=== PATIENT | female | born 1990 | race Caucasian/White ===

== ENCOUNTER → 2017-01-06 | Outpatient (CLI) | payer BC ==
--- NOTE | 2017-01-07 09:09 | RAD ---
Obstetrical ultrasound, 01/06/2017: History: Check size and dates Transabdominal scans were obtained. There is a single intrauterine fetus in a variable orientation. The biparietal diameter measures 4.0 cm compatible with a gestational age of 18-19 weeks. This corresponds well to the other measurements and yields a sonographic EDC of 06/06/2017. Normal activity and heart motion were seen. No specific abnormality is detected. The placenta lies posteriorly. The cervix was not clearly defined, however, the placenta currently extends down near the region of the internal cervical os. The cervix measures over 3 cm in length. A normal amount of amniotic fluid is present. IMPRESSION: 1. Single viable intrauterine fetus of 18-19 weeks gestational age. 2. Low-lying placenta. Sonographic follow-up is suggested.
== END | disposition home or self-care (01) ==
LOC: US 15:03
PROVIDERS: ATTEND Obstetrics & Gynecology
DX: O09.90 Supervision of high risk pregnancy, unspecified, unspecified trimester (principal); O26.849 Uterine size-date discrepancy, unspecified trimester
CPT/HCPCS: 76805

== ENCOUNTER 2017-04-23 16:38 | Inpatient (IN) | payer BC ==
[~2017-04-23] VITALS: Ht 160 cm; Wt 73.5 kg
[2017-04-23] MEDS ORDERED: MAGNESIUM SULFATE 2GM 50 ML IV ONE (18:30)
[2017-04-23] MEDS ORDERED: MAGNESIUM SULFATE 4GM 100 ML IV ONE (18:30)
[2017-04-23] MEDS: BETAMET ACET&NA PHOS 30 MG/5 ML VIAL. IM SCH (18:30)
[2017-04-23 18:58] VITALS: BP 128/80
[2017-04-23] MEDS: IV RINGERS,LACTATED 1000ML 1,000 ML IV SCH (19:00)
[2017-04-23 19:37] LABS: BASO # 0.1 x10^3/uL (0.0-0.2); BASO % 0 % (0-3); EOS % 0 % (0-3); HEMATOCRIT 38.8 % (36.0-47.0); LYMPH # 1.8 x10^3/uL (1.0-4.8); LYMPH % 14 % (24-48); MEAN CORPUSCULAR HEMOGLOBIN 29 pg (25-35); MEAN CORPUSCULAR HGB CONC 34 g/dL (31-37); MEAN CORPUSCULAR VOLUME 88 fL (79-100); MONO % 9 % (0-9); NEUT % 77 % (31-73); PLATELET COUNT 200 x10^3/uL (140-400); RED BLOOD COUNT 4.43 x10^6/uL (3.50-5.40); RED CELL DISTRIBUTION WIDTH 13.3 % (11.5-14.5); WHITE BLOOD COUNT 13.1 x10^3/uL (4.0-11.0)
[2017-04-23] MEDS: MAGNESIUM SULFATE 20GM 500 ML IV SCH (19:45)
[2017-04-24] MEDS ORDERED: fentaNYL PF VIAL 100 MCG/2 ML VIAL IV PRN (02:30)
[2017-04-24] MEDS: MAGNESIUM SULFATE 20GM 500 ML IV SCH ×2 (06:02→16:06)
--- NOTE | 2017-04-24 08:29 | PDOC1 ---
OB - History Hx of Present Care: Good Care Ultrasounds: Normal mid trimester US Obstetrical Complications: Other (H/o PTL/PTD) Medical Complications: None Past Family/Social History * Past Medical, Surgical, Family and Obstetric Histories reviewed from chart. Rubella: Immune RPR/VDRL: Negative GBS Status: Unknown HBsAG: Negative OB - Chief Complaint & HPI Date of Admission: Date of Admission: Apr 23, 2017 at 16:38 Chief Complaint/History : 2 Para: 1 EGA: 33 Reason for admission: labor Admission Nurse Assessment Rev: Yes Problems: OB - Admission Exam Physical Exam Vitals: VS - Last 72 Hours, by Label Date Time Temp Pulse Resp B/P (MAP) Pulse Ox O2 Delivery O2 Flow Rate FiO2 04/23/17 18:58 99.7 97 20 128/80 (96) 99.7 HEENT: Normal Heart: Regular Rate Lungs: Clear Abdomen: Gravid, Non tender, Soft Extremities: Edema Reflexes: Normal Cervical Dilatation: 2cm Effacement: 75% Station: -3 Membranes: Intact Heart Rate: Normal Accelerations: Accelerations Present Decelerations: No decelerations Contractions on Admission: < 5 Minutes Apart Intensity: Moderate Text A: 33 wks + 6 days IUP H/o PTL/PTD P: Admit for PTL. Start magnesium sulfate and corticosteroids. LETICIA SMAPSON Jr, MD Apr 24, 2017 08:29
[2017-04-24] MEDS: IV RINGERS,LACTATED 1000ML 1,000 ML IV SCH (10:41)
[2017-04-24] MEDS: BETAMET ACET&NA PHOS 30 MG/5 ML VIAL. IM SCH (21:30)
[2017-04-24] MEDS ORDERED: NIFEdipine 10 MG CAPSULE PO SCH (23:00)
[2017-04-25 06:20] VITALS: BP 103/59
--- NOTE | 2017-04-25 14:01 | PDOC ---
OB Progress Note Date of Service 04/25/17 Time of Evaluation 1400 Notes Pt. feeling well. No painful contractions since completing magnesium sulfate and corticosteroids. Lab Laboratory Tests Test 04/23/17 19:22 04/24/17 09:00 White Blood Count 13.1 x10^3/uL (4.0-11.0) Red Blood Count 4.43 x10^6/uL (3.50-5.40) Hemoglobin 13.0 g/dL (12.0-15.5) Hematocrit 38.8 % (36.0-47.0) Mean Corpuscular Volume 88 fL (79-100) Mean Corpuscular Hemoglobin 29 pg (25-35) Mean Corpuscular Hemoglobin Concent 34 g/dL (31-37) Red Cell Distribution Width 13.3 % (11.5-14.5) Platelet Count 200 x10^3/uL (140-400) Neutrophils (%) (Auto) 77 % (31-73) Lymphocytes (%) (Auto) 14 % (24-48) Monocytes (%) (Auto) 9 % (0-9) Eosinophils (%) (Auto) 0 % (0-3) Basophils (%) (Auto) 0 % (0-3) Neutrophils # (Auto) 10.1 x10^3uL (1.8-7.7) Lymphocytes # (Auto) 1.8 x10^3/uL (1.0-4.8) Monocytes # (Auto) 1.1 x10^3/uL (0.0-1.1) Eosinophils # (Auto) 0.0 x10^3/uL (0.0-0.7) Basophils # (Auto) 0.1 x10^3/uL (0.0-0.2) Magnesium Level 5.9 mg/dL (1.8-2.4) Medications Current Medications Ringer's Solution 1,000 ml @ 125 mls/hr Q8H IV Last administered on 04/24/17 10:41; Start 04/23/17 at 18:29 Betamethasone Acet/Betameth SodPhos (Celestone Soluspan) 12 mg Q24H IM Last administered on 04/24/17 21:30; Start 04/23/17 at 18:30; Stop 04/24/17 at 18:31; Status DC Magnesium Sulfate/ Dextrose 50 ml @ 25 mls/hr 1X ONCE IV Last administered on 04/23/17 19:46; Start 04/23/17 at 18:30; Stop 04/23/17 at 20:29; Status DC Magnesium Sulfate/ Dextrose 100 ml @ 25 mls/hr 1X ONCE IV Last administered on 04/23/17 19:45; Start 04/23/17 at 18:30; Stop 04/23/17 at 22:29; Status DC Magnesium Sulfate 500 ml @ 50 mls/hr Q10H IV Last administered on 04/24/17 16: 06; Start 04/23/17 at 18:30; Stop 04/24/17 at 22:37; Status DC Fentanyl Citrate (Fentanyl 2ml Vial) 100 mcg PRN Q1HR PRN IV SEVERE PAIN; Start 04/24/17 at 02:30 Nifedipine (Procardia) 10 mg DAILY PO Last administered on 04/25/17 06:20; Start 04/24/17 at 23:00 Exam Abd: soft, non tender Pelvic: cvx 2/70/-3. NST Category 1. No further contractions. Assessment 34 wks IUP PTL: stable Plan of Care: See new orders (D/c home.) LETICIA SAMPSON Jr, MD Apr 25, 2017 14:01
--- NOTE | 2017-04-25 14:01 | DISCH ---
DISCHARGE INSTRUCTIONS Condition on Discharge Condition on Discharge: Stable Activity After Discharge Activity Instructions for Disc: Activity as tolerated Lifting Instructions after Dis: No heavy lifting Driving Instructions after Dis: Do not drive today Diet after Discharge Diet after Discharge: Regular Contacting the DRJacob after DC Call your doctor for: Concerns you may have Follow-Up Follow up with: Dr. Kerr in 1 week. LETICIA KERR Jr, MD Apr 25, 2017 14:01
[2017-04-26 22:07] LABS: RPR REFLEX Non Reactive (Non Reactive)
--- NOTE | 2017-04-28 17:44 | PDOC3 ---
OB DISCHARGE SUMMARY DATE OF ADMISSION: 04/23/17 DATE OF DISCHARGE: 04/25/17 REASON FOR ADMISSION: labor PROCEDURES: NST, Mgmt of OB Complications (magnesium sulfate and corticosteroids) INTRAPARTUM PROCEDURES: Others (medical treatment of labor) PROCEDURES: None OPERATIONS: None DISCHARGE DIAGNOSIS: Others (PTL undelivered) DISCHARGE INFORMATION: Activity (modified bed rest), Diet (regular), Instructions (modified bed rest), Discharge to (home) CONDITION AT DISCHARGE stable LETICIA SAMPSON Jr, MD Apr 28, 2017 17:44
== END 2017-04-25 14:30 | disposition home or self-care (01) | DRG 778 ==
LOC: 3 SO LND 16:38 → OBSVTOIN 16:38
PROVIDERS: ADMIT Obstetrics & Gynecology; ATTEND Obstetrics & Gynecology
DX: O60.03 Preterm labor without delivery, third trimester (principal); Z3A.33 33 weeks gestation of pregnancy
CPT/HCPCS: 36415; 83735; 85027; 86593; 86850; 86900; 86901; 87653; G0378; J0702; J3475; J7060; J7120

== ENCOUNTER 2017-05-22 18:16 | Inpatient (IN) | payer BC ==
[~2017-05-22] VITALS: Ht 149.9 cm; Wt 76.7 kg
[2017-05-22] MEDS ORDERED: PNV1TABL25 PO (18:41)
[2017-05-22] MEDS ORDERED: RANI150T6 PO (18:41)
[2017-05-22] MEDS ORDERED: CALC200T3 PO (18:42)
[2017-05-22] MEDS ORDERED: LIDOCAINE 1% PF 30 ML VIAL. INJ PRN (18:45)
[2017-05-22] MEDS ORDERED: 0.9 % SODIUM CHLORIDE 10 ML DISP.SYRIN. IV PRN (18:45)
[2017-05-22] MEDS ORDERED: fentaNYL PF VIAL 100 MCG/2 ML VIAL IV PRN ×2 (18:45)
[2017-05-22] MEDS ORDERED: TERBUTALINE 1 MG/ML VIAL. SQ PRN (18:45)
[2017-05-22] MEDS ORDERED: OXYTOCIN 30 UNIT/500 ML PREMIX 500 ML IV PRN (18:45)
[2017-05-22] MEDS ORDERED: IBUPROFEN 600 MG TABLET. PO PRN (18:45)
[2017-05-22] MEDS ORDERED: BUTORPHANOL 2 MG/ML VIAL. IV PRN ×2 (18:45)
[2017-05-22 19:09] LABS: HEMOGLOBIN 13.3 g/dL (12.0-15.5); RED BLOOD COUNT 4.49 x10^6/uL (3.50-5.40); RED CELL DISTRIBUTION WIDTH 13.3 % (11.5-14.5); WHITE BLOOD COUNT 13.2 x10^3/uL (4.0-11.0)
[2017-05-22 20:01] VITALS: BP 123/82
[2017-05-22] MEDS ORDERED: diphenhydrAMINE HCL 25 MG CAPSULE PO PRN (20:30)
[2017-05-23] MEDS ORDERED: NALOXONE 0.4 MG/ML VIAL. IV PRN (01:45)
[2017-05-23] MEDS ORDERED: ONDANSETRON PF 4 MG/2 ML VIAL. IV PRN ×2 (01:45)
[2017-05-23] MEDS ORDERED: fentaNYL PF VIAL 100 MCG/2 ML VIAL EPI ONE (01:45)
[2017-05-23] MEDS ORDERED: ePHEDrine PF IN SALINE 50 MG/5 ML DISP.SYRIN IV PRN (01:45)
[2017-05-23] MEDS ORDERED: ROPIVacaine 0.2% PF 10 ML VIAL. EPI ONE (02:00)
[2017-05-23] MEDS: L&D EPIDURAL CASSETTE 100 ML EP PRN ×2 (02:03→09:27)
[2017-05-23] MEDS: IV RINGERS,LACTATED 1000ML 1,000 ML IV SCH ×2 (02:05→09:26)
--- NOTE | 2017-05-23 08:56 | PDOC1 ---
OB - History Hx of Present Care: Good Care Ultrasounds: Normal mid trimester US Obstetrical Complications: None Medical Complications: None Past Family/Social History * Past Medical, Surgical, Family and Obstetric Histories reviewed from chart. Rubella: Immune RPR/VDRL: Negative GBS Status: Negative HBsAG: Negative OB - Chief Complaint & HPI Date of Admission: Date of Admission: May 22, 2017 at 18:16 Chief Complaint/History : 2 Para: 1 EGA: 38 Reason for admission: active labor Admission Nurse Assessment Rev: Yes Problems: OB - Admission Exam Physical Exam Vitals: VS - Last 72 Hours, by Label Date Time Temp Pulse Resp B/P (MAP) Pulse Ox O2 Delivery O2 Flow Rate FiO2 05/23/17 02:03 18 05/23/17 02:03 18 05/23/17 00:08 18 05/22/17 20:01 99.6 82 18 123/82 (96) Room Air 99.6 Lungs: Clear Abdomen: Gravid, Non tender, Soft Extremities: Edema Reflexes: Normal Cervical Dilatation: 4cm Effacement: 75% Station: -2 Membranes: Intact Heart Rate: Normal Accelerations: Accelerations Present Decelerations: No decelerations Contractions on Admission: 6-10 Minutes Apart Intensity: Moderate Text A: 38 wks IUP Active labor H/o PTL this ; s/p corticosteroids P: Admit for labor management. LETICIA SAMPSON Jr, MD May 23, 2017 08:56
[2017-05-23] MEDS ORDERED: CITRIC ACID/SODIUM CITRATE 30 ML SOLUTION. PO ONE (09:15)
--- NOTE | 2017-05-23 10:54 | PDOC ---
VAGINAL DELIVERY DATE DATE: 05/23/17 TIME: 10:51 : 2 Para: 2 EGA: 38 VAGINAL DELIVERY: VTX VACCUM ASSISTED: No PLACENTA: Spontaneous 8/9 SEX: Male WEIGHT Weight [ 2940 gm] Nuchal Cord: No Amniotic Fluid: Clear PAIN: Epidural EPISIOTOMY: No EXTENSION: No EBL 300 ml COMPLICATIONS none CONDITION pt. stable Signs of Intrauterine Infectio: None Shoulder Dystocia: No Problems: LETICIA SAMPSON Jr, MD May 23, 2017 10:53
[2017-05-23] MEDS ORDERED: MAG HYDROX/ALUMINUM HYD/SIMETH 30 ML ORAL.SUSP PO PRN (11:00)
[2017-05-23] MEDS ORDERED: 0.9 % SODIUM CHLORIDE 10 ML DISP.SYRIN. IV PRN (11:00)
[2017-05-23] MEDS ORDERED: oxyCODONE/APAP 5/325 1 TAB TABLET PO PRN (11:00)
[2017-05-23] MEDS ORDERED: IBUPROFEN 800 MG TABLET. PO PRN (11:00)
[2017-05-23] MEDS ORDERED: OXYTOCIN 30 UNIT/500 ML PREMIX 500 ML IV PRN (11:00)
[2017-05-23] MEDS ORDERED: diphenhydrAMINE HCL 25 MG CAPSULE PO PRN (11:00)
[2017-05-23] MEDS ORDERED: SIMETHICONE 80 MG TAB.CHEW PO PRN (11:00)
[2017-05-23] MEDS ORDERED: HYDROCORTISONE 1% TOPICAL OINTMENT 30GM TUBE. TP PRN (11:00)
[2017-05-23] MEDS ORDERED: ACETAMINOPHEN 325 MG TABLET. PO PRN (11:00)
[2017-05-23] MEDS ORDERED: PHENYLEPH/MINERAL OIL/PETROLAT RECTAL OINTMENT 28GM TUBE. RC PRN (11:00)
[2017-05-23] MEDS ORDERED: BENZOCAINE 20% TOPICAL AEROSOL SPRAY 57GM CAN. TP PRN (11:00)
[2017-05-23] MEDS ORDERED: DOCUSATE SODIUM 100 MG CAPSULE. PO PRN (11:00)
[2017-05-23] MEDS ORDERED: MMR per PROTOCOL. MC PRN (11:00)
[2017-05-23] MEDS ORDERED: ZOLPIDEM 5 MG TABLET. PO PRN (11:00)
[2017-05-23] MEDS ORDERED: MAGNESIUM HYDROXIDE 2,400 MG/30 ML ORAL.SUSP. PO PRN (11:00)
[2017-05-23 13:43] VITALS: BP 121/82
[2017-05-23 15:04] VITALS: BP 108/69
[2017-05-23 18:50] VITALS: BP 108/61
[2017-05-23 21:08] VITALS: BP 117/64
[2017-05-23 23:00] VITALS: BP 104/65
[2017-05-24 03:50] VITALS: BP 102/69
[2017-05-24 04:15] VITALS: BP 108/77
[2017-05-24 06:52] LABS: BASO % 0 % (0-3); EOS % 1 % (0-3); LYMPH # 1.6 x10^3/uL (1.0-4.8); LYMPH % 11 % (24-48); MEAN CORPUSCULAR HEMOGLOBIN 30 pg (25-35); MEAN CORPUSCULAR HGB CONC 33 g/dL (31-37); MEAN CORPUSCULAR VOLUME 88 fL (79-100); MONO % 7 % (0-9); NEUT % 81 % (31-73); PLATELET COUNT 159 x10^3/uL (140-400); RED BLOOD COUNT 3.74 x10^6/uL (3.50-5.40); RED CELL DISTRIBUTION WIDTH 13.8 % (11.5-14.5); WHITE BLOOD COUNT 14.1 x10^3/uL (4.0-11.0)
[2017-05-24] MEDS ORDERED: FERROUS SULFATE 325 MG TABLET. PO SCH (08:00)
--- NOTE | 2017-05-24 12:18 | PDOC ---
OB Progress Note Date of Service 05/24/17 Time of Evaluation 1215 Notes Pt. feeling well. Breast feeding. Pain controlled. Lab Laboratory Tests Test 05/22/17 18:50 05/24/17 06:35 White Blood Count 13.2 x10^3/uL (4.0-11.0) 14.1 x10^3/uL (4.0-11.0) Red Blood Count 4.49 x10^6/uL (3.50-5.40) 3.74 x10^6/uL (3.50-5.40) Hemoglobin 13.3 g/dL (12.0-15.5) 11.0 g/dL (12.0-15.5) Hematocrit 39.0 % (36.0-47.0) 33.0 % (36.0-47.0) Mean Corpuscular Volume 87 fL (79-100) 88 fL (79-100) Mean Corpuscular Hemoglobin 30 pg (25-35) 30 pg (25-35) Mean Corpuscular Hemoglobin Concent 34 g/dL (31-37) 33 g/dL (31-37) Red Cell Distribution Width 13.3 % (11.5-14.5) 13.8 % (11.5-14.5) Platelet Count 225 x10^3/uL (140-400) 159 x10^3/uL (140-400) Neutrophils (%) (Auto) 81 % (31-73) Lymphocytes (%) (Auto) 11 % (24-48) Monocytes (%) (Auto) 7 % (0-9) Eosinophils (%) (Auto) 1 % (0-3) Basophils (%) (Auto) 0 % (0-3) Neutrophils # (Auto) 11.3 x10^3uL (1.8-7.7) Lymphocytes # (Auto) 1.6 x10^3/uL (1.0-4.8) Monocytes # (Auto) 1.0 x10^3/uL (0.0-1.1) Eosinophils # (Auto) 0.1 x10^3/uL (0.0-0.7) Basophils # (Auto) 0.0 x10^3/uL (0.0-0.2) Laboratory Tests Test 05/24/17 06:35 White Blood Count 14.1 x10^3/uL (4.0-11.0) Red Blood Count 3.74 x10^6/uL (3.50-5.40) Hemoglobin 11.0 g/dL (12.0-15.5) Hematocrit 33.0 % (36.0-47.0) Mean Corpuscular Volume 88 fL (79-100) Mean Corpuscular Hemoglobin 30 pg (25-35) Mean Corpuscular Hemoglobin Concent 33 g/dL (31-37) Red Cell Distribution Width 13.8 % (11.5-14.5) Platelet Count 159 x10^3/uL (140-400) Neutrophils (%) (Auto) 81 % (31-73) Lymphocytes (%) (Auto) 11 % (24-48) Monocytes (%) (Auto) 7 % (0-9) Eosinophils (%) (Auto) 1 % (0-3) Basophils (%) (Auto) 0 % (0-3) Neutrophils # (Auto) 11.3 x10^3uL (1.8-7.7) Lymphocytes # (Auto) 1.6 x10^3/uL (1.0-4.8) Monocytes # (Auto) 1.0 x10^3/uL (0.0-1.1) Eosinophils # (Auto) 0.1 x10^3/uL (0.0-0.7) Basophils # (Auto) 0.0 x10^3/uL (0.0-0.2) Medications Current Medications Sodium Chloride (Normal Saline Flush) 3 ml QSHIFT PRN IV AFTER MEDS AND BLOOD DRAWS; Start 05/22/17 at 18:45 Ringer's Solution 1,000 ml @ 125 mls/hr Q8H IV Last administered on 05/23/17t 09:26; Start 05/22/17 at 19:00 Butorphanol Tartrate (Stadol) 1 mg PRN Q1HR PRN IV mild to moderate labor pain ; Start 05/22/17 at 18:45 Butorphanol Tartrate (Stadol) 2 mg PRN Q1HR PRN IV Severe labor pain; Start 05/22/17 at 18:45 Fentanyl Citrate (Fentanyl 2ml Vial) 50 mcg PRN Q30MIN PRN IV Mild to moderate pain; Start 05/22/17 at 18:45 Fentanyl Citrate (Fentanyl 2ml Vial) 100 mcg PRN Q30MIN PRN IV Severe pain Last administered on 05/23/17 00:08; Start 05/22/17 at 18:45 Terbutaline Sulfate (Brethine) 0.25 mg 1X PRN PRN SQ SEE COMMENTS; Start at 18:45; Stop 05/23/17 at 18:44; Status DC Lidocaine HCl 30 ml 1X PRN PRN INJ SEE COMMENTS; Start 05/22/17 at 18:45; Stop 05/24/17 at 18:44 Oxytocin/Sodium Chloride 500 ml @ 0 mls/hr CONT PRN PRN IV Post delivery bleeding Last administered on 05/23/17 09:27; Start 05/22/17 at 18:45 Ibuprofen (Motrin) 600 mg PRN Q6HRS PRN PO PAIN; Start 05/22/17 at 18:45 Diphenhydramine HCl (Benadryl) 50 mg PRN QHS PRN PO INSOMNIA Last administered on 05/22/17 22:44; Start 05/22/17 at 20:30 Ephedrine Sulfate 10 mg PRN Q2MIN PRN IV IF SBP<90; Start 05/23/17 at 01:45 Naloxone HCl (Narcan) 0.04 mg PRN Q1MIN PRN IV SEE COMMENTS; Start 05/23/17 at 01:45 Fentanyl Citrate (Fentanyl 2ml Vial) 100 mcg 1X ONCE EPI Last administered on 05/23/17 02:03; Start 05/23/17 at 01:45; Stop 05/23/17 at 01:46; Status DC Ropivacaine/ Fentanyl/NS 100 ml @ 14 mls/hr CONT PRN EP PAIN Last administered on 05/23/17 09:27; Start 05/23/17 at 01:45 Ondansetron HCl (Zofran) 4 mg PRN Q6HRS PRN IV NAUSEA/VOMITING Last administered on 05/23/17 02:05; Start 05/23/17 at 01:45 Ropivacaine (Naropin 0.2%) 20 ml 1X ONCE EPI ; Start 05/23/17 at 02:00; Stop 05/23/17 at 02:01; Status DC Ondansetron HCl (Zofran) 4 mg PRN Q6HRS PRN IV NAUSEA/VOMITING; Start 05/23/17 at 01:45 Citric Acid/ Sodium Citrate (Bicitra) 30 ml 1X ONCE PO Last administered on 09:26; Start 05/23/17 at 09:15; Stop 05/23/17 at 09:16; Status DC Sodium Chloride (Normal Saline Flush) 10 ml QSHIFT PRN IV AFTER MEDS AND BLOOD DRAWS; Start 05/23/17 at 11:00 Oxytocin/Sodium Chloride 500 ml @ 62.5 mls/hr CONT PRN IV SEE I/O RECORD; Start 05/23/17 at 11:00; Stop 05/23/17 at 18:59; Status DC Acetaminophen (Tylenol) 650 mg PRN Q6HRS PRN PO MILD PAIN / TEMP; Start at 11:00 Ibuprofen (Motrin) 800 mg PRN Q8HRS PRN PO INFLAMMATION/PAIN PREVENTION Last administered on 05/23/17 13:13; Start 05/23/17 at 11:00 Docusate Sodium (Colace) 100 mg PRN BID PRN PO CONSTIPATION; Start 05/23/17 at 11:00 Magnesium Hydroxide (Milk Of Magnesia) 2,400 mg PRN DAILY PRN PO CONSTIPATION; Start 05/23/17 at 11:00 Al Hydroxide/Mg Hydroxide (Mylanta Plus Xs) 30 ml PRN Q4HRS PRN PO HEARTBURN / GAS; Start 05/23/17 at 11:00 Simethicone (Gas-X) 80 mg PRN AFTMEALHC PRN PO GAS / BLOATING; Start 05/23/17 at 11:00 Diphenhydramine HCl (Benadryl) 25 mg PRN Q6HRS PRN PO ITCHING; Start 05/23/17 at 11:00 Benzocaine (Americaine) 1 spray PRN QID PRN TP TOPICAL PAIN; Start 05/23/17 at 11:00 Phenyleph/Shark Oil/Min Oil/Petrol (Preparation H) 1 blaze PRN QID PRN RC RECTAL PAIN; Start 05/23/17 at 11:00 Hydrocortisone (Cortaid) 1 blaze PRN QID PRN TP PERINEAL PAIN; Start 05/23/17 at 11:00 Ferrous Sulfate (Feosol) 325 mg BIDWMEALS PO ; Start 05/24/17 at 08:00 Zolpidem Tartrate (Ambien) 5 mg PRN QHS PRN PO INSOMNIA, MAY REPEAT X1; Start 05/23/17 at 11:00 Info (Do NOT chart on this placeholder) 1 ea 1X PRN PRN MC SEE COMMENTS; Start 05/23/17 at 11:00 Info (Do NOT chart on this placeholder) 1 ea 1X PRN PRN MC SEE COMMENTS; Start 05/23/17 at 11:00 Oxycodone/ Acetaminophen (Percocet 5/325) 2 tab PRN Q4HRS PRN PO MODERATE PAIN , SEVERE PAIN; Start 05/23/17 at 11:00 Active Scripts Active Reported Tums (Calcium Carbonate) 200 Mg Tab.chew 200 Mg PO Zantac (Ranitidine Hcl) 150 Mg Tablet 150 Mg PO BID Tablet (Pnv Cmb#95/Ferrous Fumarate/Fa) 1 Each Tablet 1 Tab PO DAILY Exam Abd: soft, non tender, fundus firm Assessment PPD#1 s/p Plan of Care: Continue current Tx, Mgmt LETICIA SAMPSNO Jr, MD May 24, 2017 12:18
[2017-05-24 15:00] VITALS: BP 118/83
[2017-05-24 20:00] VITALS: BP 126/80
--- NOTE | 2017-05-25 09:30 | PDOC ---
OB Progress Note Date of Service 05/25/17 Time of Evaluation 0930 Notes Pt. feeling well. No complaints. Lab Laboratory Tests Test 05/24/17 06:35 White Blood Count 14.1 x10^3/uL (4.0-11.0) Red Blood Count 3.74 x10^6/uL (3.50-5.40) Hemoglobin 11.0 g/dL (12.0-15.5) Hematocrit 33.0 % (36.0-47.0) Mean Corpuscular Volume 88 fL (79-100) Mean Corpuscular Hemoglobin 30 pg (25-35) Mean Corpuscular Hemoglobin Concent 33 g/dL (31-37) Red Cell Distribution Width 13.8 % (11.5-14.5) Platelet Count 159 x10^3/uL (140-400) Neutrophils (%) (Auto) 81 % (31-73) Lymphocytes (%) (Auto) 11 % (24-48) Monocytes (%) (Auto) 7 % (0-9) Eosinophils (%) (Auto) 1 % (0-3) Basophils (%) (Auto) 0 % (0-3) Neutrophils # (Auto) 11.3 x10^3uL (1.8-7.7) Lymphocytes # (Auto) 1.6 x10^3/uL (1.0-4.8) Monocytes # (Auto) 1.0 x10^3/uL (0.0-1.1) Eosinophils # (Auto) 0.1 x10^3/uL (0.0-0.7) Basophils # (Auto) 0.0 x10^3/uL (0.0-0.2) Medications Current Medications Sodium Chloride (Normal Saline Flush) 3 ml QSHIFT PRN IV AFTER MEDS AND BLOOD DRAWS; Start 05/22/17 at 18:45 Ringer's Solution 1,000 ml @ 125 mls/hr Q8H IV Last administered on 05/23/17t 09:26; Start 05/22/17 at 19:00 Butorphanol Tartrate (Stadol) 1 mg PRN Q1HR PRN IV mild to moderate labor pain ; Start 05/22/17 at 18:45 Butorphanol Tartrate (Stadol) 2 mg PRN Q1HR PRN IV Severe labor pain; Start 05/22/17 at 18:45 Fentanyl Citrate (Fentanyl 2ml Vial) 50 mcg PRN Q30MIN PRN IV Mild to moderate pain; Start 05/22/17 at 18:45 Fentanyl Citrate (Fentanyl 2ml Vial) 100 mcg PRN Q30MIN PRN IV Severe pain Last administered on 05/23/17 00:08; Start 05/22/17 at 18:45 Terbutaline Sulfate (Brethine) 0.25 mg 1X PRN PRN SQ SEE COMMENTS; Start at 18:45; Stop 05/23/17 at 18:44; Status DC Lidocaine HCl 30 ml 1X PRN PRN INJ SEE COMMENTS; Start 05/22/17 at 18:45; Stop 05/24/17 at 18:44; Status DC Oxytocin/Sodium Chloride 500 ml @ 0 mls/hr CONT PRN PRN IV Post delivery bleeding Last administered on 05/23/17 09:27; Start 05/22/17 at 18:45 Ibuprofen (Motrin) 600 mg PRN Q6HRS PRN PO PAIN; Start 05/22/17 at 18:45 Diphenhydramine HCl (Benadryl) 50 mg PRN QHS PRN PO INSOMNIA Last administered on 05/22/17 22:44; Start 05/22/17 at 20:30 Ephedrine Sulfate 10 mg PRN Q2MIN PRN IV IF SBP<90; Start 05/23/17 at 01:45 Naloxone HCl (Narcan) 0.04 mg PRN Q1MIN PRN IV SEE COMMENTS; Start 05/23/17 at 01:45 Fentanyl Citrate (Fentanyl 2ml Vial) 100 mcg 1X ONCE EPI Last administered on 05/23/17 02:03; Start 05/23/17 at 01:45; Stop 05/23/17 at 01:46; Status DC Ropivacaine/ Fentanyl/NS 100 ml @ 14 mls/hr CONT PRN EP PAIN Last administered on 05/23/17 09:27; Start 05/23/17 at 01:45 Ondansetron HCl (Zofran) 4 mg PRN Q6HRS PRN IV NAUSEA/VOMITING Last administered on 05/23/17 02:05; Start 05/23/17 at 01:45 Ropivacaine (Naropin 0.2%) 20 ml 1X ONCE EPI ; Start 05/23/17 at 02:00; Stop 05/23/17 at 02:01; Status DC Ondansetron HCl (Zofran) 4 mg PRN Q6HRS PRN IV NAUSEA/VOMITING; Start 05/23/17 at 01:45 Citric Acid/ Sodium Citrate (Bicitra) 30 ml 1X ONCE PO Last administered on 09:26; Start 05/23/17 at 09:15; Stop 05/23/17 at 09:16; Status DC Sodium Chloride (Normal Saline Flush) 10 ml QSHIFT PRN IV AFTER MEDS AND BLOOD DRAWS; Start 05/23/17 at 11:00 Oxytocin/Sodium Chloride 500 ml @ 62.5 mls/hr CONT PRN IV SEE I/O RECORD; Start 05/23/17 at 11:00; Stop 05/23/17 at 18:59; Status DC Acetaminophen (Tylenol) 650 mg PRN Q6HRS PRN PO MILD PAIN / TEMP; Start at 11:00 Ibuprofen (Motrin) 800 mg PRN Q8HRS PRN PO INFLAMMATION/PAIN PREVENTION Last administered on 05/23/17t 13:13; Start 05/23/17 at 11:00 Docusate Sodium (Colace) 100 mg PRN BID PRN PO CONSTIPATION; Start 05/23/17 at 11:00 Magnesium Hydroxide (Milk Of Magnesia) 2,400 mg PRN DAILY PRN PO CONSTIPATION; Start 05/23/17 at 11:00 Al Hydroxide/Mg Hydroxide (Mylanta Plus Xs) 30 ml PRN Q4HRS PRN PO HEARTBURN / GAS; Start 05/23/17 at 11:00 Simethicone (Gas-X) 80 mg PRN AFTMEALHC PRN PO GAS / BLOATING; Start 05/23/17 at 11:00 Diphenhydramine HCl (Benadryl) 25 mg PRN Q6HRS PRN PO ITCHING; Start 05/23/17 at 11:00 Benzocaine (Americaine) 1 spray PRN QID PRN TP TOPICAL PAIN; Start 05/23/17 at 11:00 Phenyleph/Shark Oil/Min Oil/Petrol (Preparation H) 1 blaze PRN QID PRN RC RECTAL PAIN; Start 05/23/17 at 11:00 Hydrocortisone (Cortaid) 1 blaze PRN QID PRN TP PERINEAL PAIN; Start 05/23/17 at 11:00 Ferrous Sulfate (Feosol) 325 mg BIDWMEALS PO ; Start 05/24/17 at 08:00 Zolpidem Tartrate (Ambien) 5 mg PRN QHS PRN PO INSOMNIA, MAY REPEAT X1; Start 05/23/17 at 11:00 Info (Do NOT chart on this placeholder) 1 ea 1X PRN PRN MC SEE COMMENTS; Start 05/23/17 at 11:00 Info (Do NOT chart on this placeholder) 1 ea 1X PRN PRN MC SEE COMMENTS; Start 05/23/17 at 11:00 Oxycodone/ Acetaminophen (Percocet 5/325) 2 tab PRN Q4HRS PRN PO MODERATE PAIN , SEVERE PAIN; Start 05/23/17 at 11:00 Active Scripts Active Reported Tums (Calcium Carbonate) 200 Mg Tab.chew 200 Mg PO Zantac (Ranitidine Hcl) 150 Mg Tablet 150 Mg PO BID Tablet (Pnv Cmb#95/Ferrous Fumarate/Fa) 1 Each Tablet 1 Tab PO DAILY Exam Abd: soft, non tender, fundus firm Assessment PPD# 2 s/p Plan of Care: See new orders (D/c home.) LETICIA SAMPSON Jr, MD May 25, 2017 09:30
[2017-05-25] MEDS ORDERED: IBUP-1060 PO (09:31)
--- NOTE | 2017-05-25 09:31 | DISCH ---
DISCHARGE INSTRUCTIONS Condition on Discharge Condition on Discharge: Stable Activity After Discharge Activity Instructions for Disc: Activity as tolerated Lifting Instructions after Dis: No heavy lifting Driving Instructions after Dis: Do not drive today Diet after Discharge Diet after Discharge: Regular Contacting the DRJacob after DC Call your doctor for: Concerns you may have Follow-Up Follow up with: Dr. Kerr in 6 weeks. LETICIA KERR Jr, MD May 25, 2017 09:31
[2017-05-25 09:42] VITALS: BP 118/75
[2017-05-25 16:05] VITALS: BP 130/84
[2017-05-26 07:28] LABS: RPR REFLEX Non Reactive (Non Reactive)
== END 2017-05-25 18:15 | disposition home or self-care (01) | DRG 775 ==
LOC: 3 SO LND 18:16 → 3 NORTH 05-23 14:00
PROVIDERS: ADMIT Obstetrics & Gynecology; ATTEND Obstetrics & Gynecology
PROC: 10E0XZZ Delivery of Products of Conception, External Approach (ICD-10-PCS; principal; 2017-05-23)
PROC: 3E0S3BZ Introduction of Anesthetic Agent into Epidural Space, Percutaneous Approach (ICD-10-PCS; 2017-05-23)
PROC: 00HU33Z Insertion of Infusion Device into Spinal Canal, Percutaneous Approach (ICD-10-PCS; 2017-05-23)
DX: O80 Encounter for full-term uncomplicated delivery (principal); Z37.0 Single live birth; Z3A.38 38 weeks gestation of pregnancy
CPT/HCPCS: 36415; 85027; 86850; 86900; 86901; C1887; J2405; J2590; J3010; J7120; Q0163